=== PATIENT | female | born 1995 | race Hispanic/Latino ===

== ENCOUNTER 2019-04-02 07:30 | Inpatient (IN) | payer MEDICAID, OTHER ==
[~2019-04-02] VITALS: Ht 157.5 cm; Wt 97.5 kg
[2019-04-02 07:55] LABS: APPEARANCE,URINE Clear (CLEAR); BILIRUBIN,URINE Negative (NEGATIVE); COLOR,URINE Yellow (YELLOW); GLUCOSE, URINE (UA) Negative (NEGATIVE); KETONES,URINE Negative (NEGATIVE); LEUKOCYTE ESTERASE ,URINE Negative (NEGATIVE); NITRATE,URINE Negative (NEGATIVE); OCCULT BLOOD,URINE Negative (NEGATIVE); PROTEIN,URINE Negative (NEGATIVE); UROBILINOGEN,URINE 0.2 mg/dL (0.2-1.0)
[2019-04-02 07:57] LABS: HCG,QUAL RESULT NEGATIVE (NEGATIVE)
[2019-04-02] MEDS ORDERED: SODIUM CHLORIDE 0.9% 1000ML 1,000 ML IV ONE (08:01)
[2019-04-02] MEDS ORDERED: ONDANSETRON HCL 4 MG/2 ML VIAL ONE (08:01)
[2019-04-02] MEDS ORDERED: KETOROLAC TROMETHAMINE 15MG/ML ONE (08:02)
[2019-04-02 08:24] LABS: BASOPHILS % (AUTO) 0.4 % (0.0-5.0); EOSINOPHILS % (AUTO) 1.2 % (0.0-8.0); HEMATOCRIT 37.6 % (36-48); LYMPHOCYTES % (AUTO) 25.5 % (21.0-51.0); MEAN CORPUSCULAR HEMOGLOBIN 21.9 pg (27.0-33.0); MEAN CORPUSCULAR HGB CONC 31.4 g/dL (32.0-36.0); MEAN CORPUSCULAR VOLUME 69.9 fL (79-99); MONOCYTES % (AUTO) 6.4 % (3.0-13.0); NEUTROPHILS % (AUTO) 66.2 % (40.0-77.0); PLATELET COUNT (AUTO) 215 K/uL (130-400); RED BLOOD CELL COUNT(AUTO) 5.38 MIL/uL (4.00-5.50); WHITE BLOOD COUNT (AUTO) 7.2 K/uL (4.8-10.8)
[2019-04-02 08:48] LABS: CREATININE 0.7 mg/dL (0.5-1.5); POTASSIUM 3.9 mmol/L (3.5-5.1)
[2019-04-02 08:52] LABS: ALBUMIN 3.1 g/dL (3.5-5.0); BILIRUBIN,DIRECT 0.1 mg/dL (0.0-0.3); BILIRUBIN,TOTAL 0.2 mg/dL (0.2-1.0); TOTAL PROTEIN, SERUM 7.8 g/dL (6.0-8.3)
[2019-04-02 08:52] LABS: AMPHET/METH SCREEN,URINE NEGATIVE (NEGATIVE); BARBITURATE SCREEN, URINE NEGATIVE (NEGATIVE); BENZODIAZEPINES SCREEN,URINE NEGATIVE (NEGATIVE); CANNABINOID SCREEN,URINE NEGATIVE (NEGATIVE); COCAINE SCREEN,URINE NEGATIVE (NEGATIVE); OPIATE SCREEN,URINE NEGATIVE (NEGATIVE); PHENCYCLIDINE SCREEN,URINE NEGATIVE (NEGATIVE)
[2019-04-02] MEDS: SODIUM CHLORIDE 0.9% 1000ML 1,000 ML IV SCH ×2 (11:01→19:53)
[2019-04-02] MEDS ORDERED: LACTULOSE 20 GM/30 ML UDCUP PO PRN (11:15)
[2019-04-02] MEDS ORDERED: ACETAMINOPHEN 325 MG TAB PO PRN (11:15)
[2019-04-02] MEDS ORDERED: ONDANSETRON HCL 4 MG/2 ML VIAL IV PRN (11:15)
[2019-04-02 13:01] VITALS: BP 127/69
[2019-04-02] MEDS: CEFTRIAXONE SODIUM 1 GM IVP SCH (13:26)
--- NOTE | 2019-04-02 13:49 | NUR ---
GENSUR CONSULT DR NEUMANN (ONCALL) PAGED REGARDING CONSULT. PENDING CB
--- NOTE | 2019-04-02 13:59 | NUR ---
GENSURG CONSULT DR NEUMANN CB STATED HE SHERRY SEE PT
[2019-04-02 16:20] VITALS: BP 104/57
[2019-04-02 19:26] VITALS: BP 116/68
[2019-04-02] MEDS: FAMOTIDINE/PF 20 MG/2 ML VIAL IV SCH (19:52)
[2019-04-03] VITALS (20 sets, daily range): BP systolic 93–124; BP diastolic 52–73
[2019-04-03 06:34] LABS: BASOPHILS % (AUTO) 0.5 % (0.0-5.0); EOSINOPHILS % (AUTO) 2.6 % (0.0-8.0); HEMATOCRIT 34.3 % (36-48); LYMPHOCYTES % (AUTO) 36.2 % (21.0-51.0); MEAN CORPUSCULAR HEMOGLOBIN 21.9 pg (27.0-33.0); MEAN CORPUSCULAR HGB CONC 30.9 g/dL (32.0-36.0); MONOCYTES % (AUTO) 7.6 % (3.0-13.0); NEUTROPHILS % (AUTO) 52.8 % (40.0-77.0); PLATELET COUNT (AUTO) 187 K/uL (130-400); RED BLOOD CELL COUNT(AUTO) 4.83 MIL/uL (4.00-5.50); RED CELL DISTRIBUTION WIDTH 17.7 % (11.0-15.5); WHITE BLOOD COUNT (AUTO) 6.6 K/uL (4.8-10.8)
[2019-04-03] MEDS: SODIUM CHLORIDE 0.9% 1000ML 1,000 ML IV SCH ×2 (06:37→13:24)
[2019-04-03 06:46] LABS: INR 0.96 (0.85-1.15); PROTHROMBIN TIME 10.1 SEC (9.6-11.6)
[2019-04-03 07:04] LABS: ALBUMIN 2.7 g/dL (3.5-5.0); BILIRUBIN,TOTAL 0.3 mg/dL (0.2-1.0); CREATININE 0.7 mg/dL (0.5-1.5); POTASSIUM 3.9 mmol/L (3.5-5.1); TOTAL PROTEIN, SERUM 6.6 g/dL (6.0-8.3)
[2019-04-03] MEDS: MORPHINE SULFATE 2 MG/ML 1ML SYG IVP PRN ×2 (09:52→21:09)
[2019-04-03] MEDS: FAMOTIDINE/PF 20 MG/2 ML VIAL IV SCH ×2 (09:53→21:10)
[2019-04-03] MEDS ORDERED: HEPARIN SODIUM 1000UNIT/ML 10ML VIAL ONE (10:56)
[2019-04-03] MEDS ORDERED: SUCCINYLCHOLINE 200MG/10ML SYR ONE (11:15)
[2019-04-03] MEDS ORDERED: ONDANSETRON HCL 4 MG/2 ML VIAL ONE (11:15)
[2019-04-03] MEDS ORDERED: PROPOFOL 10 MG/ML 20ML VIAL IV ONE (11:15)
[2019-04-03] MEDS ORDERED: LIDOCAINE PF 2% 5ML ABBOJECT ONE (11:15)
[2019-04-03] MEDS ORDERED: MEPERIDINE-PF 25 MG/ML SYG ONE ×3 (11:16→12:47)
[2019-04-03] MEDS ORDERED: FENTANYL CITRATE PF 50 MCG/1 ML 2ML VIAL ONE (11:16)
[2019-04-03] MEDS ORDERED: ROCURONIUM 10MG/1ML SYR 10 MG/ML ML ONE (11:16)
[2019-04-03] MEDS ORDERED: SODIUM CHLORIDE 0.9% 10 ML VIAL ONE (11:32)
[2019-04-03] MEDS ORDERED: PHENYLEPHRINE HCL 10 MG/ML 1ML VIAL IV ONE (11:32)
[2019-04-03] MEDS ORDERED: GLYCOPYRROLATE 1 MG/5 ML SYRINGE ONE (12:06)
[2019-04-03] MEDS ORDERED: NEOSTIGMINE 5MG/5ML SYR IV ONE (12:07)
[2019-04-03] MEDS ORDERED: KETOROLAC TROMETHAMINE 15MG/ML ONE (12:07)
[2019-04-03] MEDS ORDERED: METOCLOPRAMIDE 10 MG/2 ML VIAL ONE (12:46)
[2019-04-03] MEDS: CEFTRIAXONE SODIUM 1 GM IVP SCH (13:24)
[2019-04-03] MEDS: ACETAMINOPHEN-CODEINE 300/30MG TAB PO PRN (17:12)
--- NOTE | 2019-04-03 18:06 | NUR ---
cm note pt resides athome with spouse independent with ambulation and adls. no dme. provided area clinic information. [facility] dc plan is back to home. no dc needs. Addendum: 04/03/19 at 1808 by MONISHA ZHAO CM Amended: Links added.
[2019-04-04 04:00] VITALS: BP 95/52
[2019-04-04] MEDS: MORPHINE SULFATE 2 MG/ML 1ML SYG IVP PRN (05:58)
[2019-04-04 06:17] LABS: BASOPHILS % (AUTO) 0.5 % (0.0-5.0); EOSINOPHILS % (AUTO) 0.8 % (0.0-8.0); LYMPHOCYTES % (AUTO) 26.7 % (21.0-51.0); MEAN CORPUSCULAR HEMOGLOBIN 21.8 pg (27.0-33.0); MEAN CORPUSCULAR HGB CONC 30.9 g/dL (32.0-36.0); MEAN CORPUSCULAR VOLUME 70.7 fL (79-99); NEUTROPHILS % (AUTO) 64.7 % (40.0-77.0); PLATELET COUNT (AUTO) 222 K/uL (130-400); RED BLOOD CELL COUNT(AUTO) 4.81 MIL/uL (4.00-5.50); RED CELL DISTRIBUTION WIDTH 17.4 % (11.0-15.5); WHITE BLOOD COUNT (AUTO) 8.6 K/uL (4.8-10.8)
[2019-04-04 06:36] LABS: ALBUMIN 2.7 g/dL (3.5-5.0); BILIRUBIN,TOTAL 0.3 mg/dL (0.2-1.0); CREATININE 0.6 mg/dL (0.5-1.5); POTASSIUM 3.5 mmol/L (3.5-5.1); TOTAL PROTEIN, SERUM 6.7 g/dL (6.0-8.3)
[2019-04-04 08:57] VITALS: BP 132/58
[2019-04-04] MEDS: FAMOTIDINE/PF 20 MG/2 ML VIAL IV SCH (09:52)
[2019-04-04] MEDS: ACETAMINOPHEN-CODEINE 300/30MG TAB PO PRN (09:52)
[2019-04-04] MEDS: SODIUM CHLORIDE 0.9% 1000ML 1,000 ML IV SCH (09:56)
--- NOTE | 2019-04-04 11:30 | NUR ---
Ariana TOWNSEND NP SPOKE TO Ariana TOWNSEND NP AND SHE STATED "I TALKED TO DR. NEUMANN TODAY ALREADY. HE TOLD ME PATIENT COULD GO HOME, SO I AM DISCHARGING PATIENT TODAY IF SHE CONTINUES TO DO WELL." I CLARIFIED BY ASKING "DR. NEUMANN TOLD YOU THE PATIENT WAS CLEARED FOR DISCHARGE TODAY?" AND Ariana TOWNSEND NP REPLIED "YES".
[2019-04-04 11:39] VITALS: BP 97/56
[2019-04-04] MEDS ORDERED: CEPH500C2 PO (12:05)
--- NOTE | 2019-04-04 12:30 | NUR ---
PATIENT INFORMED OF DISCHARGE PLAN PATIENT INFORMED THAT Ariana TOWNSEND NP HAS PLACED DISCHARGE PLAN FOR TODAY, BUT THAT WOULD BE WHEN PATIENTS SYSTOLIC BLOOD PRESSURE IS ABOVE 110. PATIENT VERBALIZED UNDERSTANDING OF THIS. PATIENT ALSO STATES DR. NEUMANN VISITED HER TODAY AND TOLD PATIENT SHE CAN GO HOME.
[2019-04-04 13:36] VITALS: BP 103/61
[2019-04-04 16:00] VITALS: BP 132/78
== END 2019-04-04 16:00 | disposition home or self-care (01) | DRG 419 ==
LOC: EDH 07:30 → EDHIP 07:31 → 4AH 11:46
PROVIDERS: ADMIT Family Medicine; ATTEND Family Medicine
PROC: 0FT44ZZ Resection of Gallbladder, Percutaneous Endoscopic Approach (ICD-10-PCS; principal; 2019-04-03 11:24)
DX: K80.62 Calculus of gallbladder and bile duct with acute cholecystitis without obstruction (principal); E66.9 Obesity, unspecified; Z68.39 Body mass index [BMI] 39.0-39.9, adult
CPT/HCPCS: 36415; 74181; 76705; 80048; 80053; 80076; 80305; 81003; 81025; 83690; 85025; 85610; G0378; J0330; J0696; J1644; J1885; J2001; J2175; J2370; J2405; J2704; J2710; J2765; J3010; J3490; J7030; J7120

== ENCOUNTER 2021-07-31 18:52 | Emergency (ER) | payer MEDICAID ==
[~2021-07-31] VITALS: Ht 157.5 cm; Wt 90.7 kg
[~2021-07-31 18:52] MED LIST: CEPH500C2 PO
[2021-07-31] MEDS ORDERED: PENICILLIN G BENZATHINE LA 1.2 MILUNITS/2 ML SYG IM ONE (20:00)
[2021-07-31] MEDS ORDERED: ACETAMINOPHEN 500 MG TABLET PO ONE (20:00)
[2021-07-31 20:43] VITALS: BP 106/68
== END 2021-07-31 20:50 | disposition home or self-care (01) ==
LOC: EDH 18:52
DX: O26.90 Pregnancy related conditions, unspecified, unspecified trimester (principal); J02.0 Streptococcal pharyngitis; Z20.822 Contact with and (suspected) exposure to COVID-19; Z98.890 Other specified postprocedural states; Z3A.00 Weeks of gestation of pregnancy not specified
CPT/HCPCS: 87635; 87804 ×2; 87880; 96372; 99283; C9803; J0561